=== PATIENT | female | born 1980 | race African-American/Black ===

== ENCOUNTER 2016-11-17 19:41 | Emergency (ER) | payer SELFPAY ==
[2016-11-17 20:02] VITALS: BP 152/80
--- NOTE | 2016-11-17 20:28 | UC ---
Lower Extremity/Ankle HPI - HPI Summary HPI Summary: While climbing some steps holding a stroller today, missed one step and came down hard on L foot, minorly twisting the foot. Hx of L ankle fx without surgery in past. - History of Current Complaint Chief Complaint: UCLowerExtremity Stated Complaint: FOOT INJURY Time Seen by Provider: 11/17/16 19:47 Hx Obtained From: Patient Hx Last Menstrual Period: 2011 ?: No Onset/Duration: Sudden Onset Severity Initially: Mild Severity Currently: Mild Aggravating Factor(s): Standing, Ambulation Alleviating Factor(s): Rest Able to Bear Weight: Yes - Allergies/Home Medications Allergies/Adverse Reactions: Allergies Allergy/AdvReac Type Severity Reaction Status Date / Time No Known Allergies Allergy Verified 11/17/16 20:03 PMH/Surg Hx/FS Hx/Imm Hx Endocrine History Of: Denies: Diabetes, Thyroid Disease Cardiovascular History Of: Denies: Cardiac Disorders, Hypertension Respiratory History Of: Denies: COPD, Asthma GI/ History Of: Reports: Gastroesophageal Reflux, Ulcer - gerd Psychological History Of: Reports: Depression, Bipolar Disorder - Surgical History Surgical History: Yes Surgery Procedure, Year, and Place: hysterectomy. - Family History Known Family History: Positive: Other - NONCONTRIBUTORY Family History: obesity - Social History Occupation: Employed Part-time Lives: With Family Alcohol Use: None Substance Use Type: None Smoking Status (MU): Light Every Day Tobacco Smoker Type: Cigarettes Amount Used/How Often: less than 1/2 PPD Have You Smoked in the Last Year: Yes Household Exposure Type: Cigarettes - Immunization History Most Recent Influenza Vaccination: 7994-1050 Most Recent Tetanus Shot: 2013 Review of Systems Constitutional: Negative Skin: Negative Eyes: Negative ENT: Negative Respiratory: Negative Cardiovascular: Negative Gastrointestinal: Negative Genitourinary: Negative Motor: Negative Neurovascular: Negative Musculoskeletal: Arthralgia Neurological: Negative Psychological: Negative All Other Systems Reviewed And Are Negative: Yes Physical Exam Triage Information Reviewed: Yes Appearance: Well-Appearing, No Pain Distress, Obese Vital Signs: Initial Vital Signs Temp 97.9 F 11/17/16 19:57 Pulse 87 11/17/16 19:57 Resp 18 11/17/16 19:57 BP 152/80 11/17/16 19:57 Pulse Ox 98 11/17/16 19:57 Vital Signs Reviewed: Yes Eye Exam: Normal Eyes: Positive: Conjunctiva Clear ENT Exam: Normal ENT: Positive: Normal ENT inspection, Hearing grossly normal, Pharynx normal, TMs normal Dental Exam: Other - edentulous Neck exam: Normal Respiratory Exam: Normal Respiratory: Positive: Chest non-tender, Lungs clear, Normal breath sounds, No respiratory distress, No accessory muscle use Cardiovascular Exam: Normal Cardiovascular: Positive: RRR, No Murmur Musculoskeletal Exam: Other - pain in L lateral foot Musculoskeletal: Positive: Strength Intact, ROM Intact Neurological Exam: Normal Neurological: Positive: Alert Psychological Exam: Normal Skin Exam: Normal Lower Extremity Course/Dx - Differential Dx/Diagnosis Provider Diagnoses: L foot sprain Discharge - Discharge Plan Condition: Stable Disposition: HOME Patient Education Materials: Foot Sprain (ED) Referrals: Yoni Grijalva DO [Primary Care Provider] - 2 Weeks
--- NOTE | 2016-11-17 20:45 | RAD ---
INDICATION: Left foot injury. TECHNIQUE: 3 views of the left foot were obtained. FINDINGS: There is hallux valgus deformity. The bones are otherwise in normal alignment. No fracture is seen. Joint spaces appear maintained. IMPRESSION: NO EVIDENCE FOR FRACTURE.
== END 2016-11-17 20:48 | disposition home or self-care (01) ==
LOC: UCEAST 19:41
DX: S93.602A Unspecified sprain of left foot, initial encounter (principal); K21.9 Gastro-esophageal reflux disease without esophagitis; F33.9 Major depressive disorder, recurrent, unspecified; F17.210 Nicotine dependence, cigarettes, uncomplicated; W10.9XXA Fall (on) (from) unspecified stairs and steps, initial encounter
CPT/HCPCS: 99211; G0463

== ENCOUNTER 2017-01-23 16:47 | Emergency (ER) | payer SELFPAY ==
[2017-01-23 17:25] VITALS: BP 145/83
--- NOTE | 2017-01-23 18:16 | UC ---
Throat Pain/Nasal Bernard HPI - HPI Summary HPI Summary: The patient comes in today for: 1. Fever, sore throat, otalgia: Onset: 24 hours ago. Palliative/provocative: Swallowing makes it worse. Quality: Sore Region: posterior pharynx. Severity: 7/10 Time: Constant. Associated symptoms: Others ill: she was around a sick mother and twins yesterday. Temperatures: 102 today. Rhinitis: None Cough: "a little bit" not productive. Nausea: present. * - History of Current Complaint Chief Complaint: UCGeneralIllness Stated Complaint: FEVER Time Seen by Provider: 01/23/17 18:08 Hx Obtained From: Patient Hx Last Menstrual Period: 2011 - Allergies/Home Medications Allergies/Adverse Reactions: Allergies Allergy/AdvReac Type Severity Reaction Status Date / Time No Known Allergies Allergy Verified 01/23/17 17:25 Home Medications: Home Medications Ibuprofen TAB* [Motrin TAB* 800 MG] 1,600 mg PO ONCE 01/23/17 [History Confirmed 01/23/17] PMH/Surg Hx/FS Hx/Imm Hx Previously Healthy: No - irritable bowel syndrome. GI/ History: Gastroesophageal Reflux Psychological History: Anxiety, Depression - Surgical History Surgical History: Yes Surgery Procedure, Year, and Place: hysterectomy. - Family History Known Family History: Positive: Hypertension, Diabetes, Other - NONCONTRIBUTORY Family History: obesity - Social History Occupation: Employed Full-time Alcohol Use: None Substance Use Type: None Smoking Status (MU): Light Every Day Tobacco Smoker Type: Cigarettes Amount Used/How Often: less than 1/2 PPD Have You Smoked in the Last Year: Yes Household Exposure Type: Cigarettes - Immunization History Most Recent Influenza Vaccination: [id number] Most Recent Tetanus Shot: 2013 Review of Systems Constitutional: Fever Skin: Negative Eyes: Negative ENT: Sore Throat Respiratory: Cough Cardiovascular: Negative Gastrointestinal: Negative Genitourinary: Negative Musculoskeletal: Arthralgia All Other Systems Reviewed And Are Negative: Yes Physical Exam Triage Information Reviewed: Yes Appearance: No Pain Distress, Ill-Appearing - She was a bit slow with her movement and there was a lack of expressive facial features., Obese Vital Signs: Initial Vital Signs Temp 101 F 01/23/17 17:20 Pulse 126 01/23/17 17:20 Resp 22 01/23/17 17:20 BP 145/83 01/23/17 17:20 Pulse Ox 100 01/23/17 17:20 Vital Signs Reviewed: Yes Eyes: Positive: Conjunctiva Clear. Negative: Discharge ENT: Positive: Hearing grossly normal. Negative: Pharyngeal erythema, Nasal congestion, Nasal drainage, TM bulging, TM dull, TM red, Tonsillar swelling, Tonsillar exudate Dental: Negative: Gross Decay/Caries @, Dental Fracture @ Neck: Positive: Supple, Nontender, No Lymphadenopathy. Negative: Nuchal Rigidity Respiratory: Positive: Lungs clear, No respiratory distress, No accessory muscle use. Negative: Rhonchi, Wheezing Cardiovascular: Positive: RRR, No Murmur Abdomen Description: Positive: Nontender, No Organomegaly, Soft. Negative: Distended, Guarding Musculoskeletal: Positive: Strength Intact, ROM Intact, No Edema Neurological: Positive: Alert, Muscle Tone Normal Psychological: Positive: Age Appropriate Behavior, Consolable Skin: Negative: rashes, breakdown Diagnostics - Laboratory Diagnostic Studies Completed/Ordered: strep test: (+) Throat Pain/Nasal Course/Dx - Differential Dx/Diagnosis Differential Diagnosis/HQI/PQRI: Laryngitis, Tonsillitis Provider Diagnoses: Strep pharyngitis Discharge - Discharge Plan Condition: Stable Disposition: HOME Patient Education Materials: Strep Throat (ED) Referrals: Yoni Grijalva DO [Primary Care Provider] - 1 Week (Please see your primary care provider in about one to two weeks to see how well you are doing. If you get worse, please be seen sooner.)
[2017-01-23] MEDS ORDERED: Ondansetron ODT TAB* 4 MG PO ONE (18:19)
== END 2017-01-23 18:34 | disposition home or self-care (01) ==
LOC: UCCORT 16:47
DX: J02.0 Streptococcal pharyngitis (principal); F17.210 Nicotine dependence, cigarettes, uncomplicated
CPT/HCPCS: 87651; 99212; A9270-GY; G0463

== ENCOUNTER 2017-08-22 17:36 | Emergency (ER) | payer OTHER ==
[2017-08-22 18:04] VITALS: BP 132/68
--- NOTE | 2017-08-22 18:41 | UC ---
Throat Pain/Nasal Bernard HPI - HPI Summary HPI Summary: Per haircutter: "fever since last night, body aches/sore throat," Feels like it' s strep. has had strep in past and feels similar. + nausea. + glands swollen. no cough. - History of Current Complaint Chief Complaint: UCGeneralIllness Stated Complaint: SORE THROAT Time Seen by Provider: 08/22/17 18:06 Hx Last Menstrual Period: 2011 - Allergies/Home Medications Allergies/Adverse Reactions: Allergies Allergy/AdvReac Type Severity Reaction Status Date / Time No Known Allergies Allergy Verified 08/22/17 18:04 PMH/Surg Hx/FS Hx/Imm Hx Previously Healthy: Yes - Surgical History Surgical History: Yes Surgery Procedure, Year, and Place: hysterectomy. - Family History Known Family History: Positive: Hypertension, Diabetes, Other - NONCONTRIBUTORY Family History: obesity - Social History Alcohol Use: None Substance Use Type: None Smoking Status (MU): Former Smoker Type: Cigarettes Amount Used/How Often: less than 1/2 PPD Have You Smoked in the Last Year: Yes Household Exposure Type: Cigarettes - Immunization History Most Recent Influenza Vaccination: [id number] Most Recent Tetanus Shot: 2013 Review of Systems Constitutional: Fever, Chills, Fatigue Skin: Negative Eyes: Negative ENT: Sore Throat Respiratory: Negative Cardiovascular: Negative Gastrointestinal: Nausea Genitourinary: Negative Motor: Negative Neurovascular: Negative Musculoskeletal: Negative Neurological: Negative Psychological: Negative Is Patient Immunocompromised?: No All Other Systems Reviewed And Are Negative: Yes Physical Exam Triage Information Reviewed: Yes Appearance: Well-Nourished, Ill-Appearing Vital Signs: Initial Vital Signs Temp 100.0 F 08/22/17 18:00 Pulse 136 08/22/17 18:00 Resp 20 08/22/17 18:00 BP 132/68 08/22/17 18:00 Pulse Ox 99 08/22/17 18:00 Vital Signs Reviewed: Yes Eye Exam: Normal ENT: Positive: Pharyngeal erythema. Negative: Tonsillar swelling, Tonsillar exudate - no abscess., Sinus tenderness Dental Exam: Normal Neck exam: Normal Neck: Positive: Supple, Enlarged Nodes @ - b/l ant cx, tender. Respiratory Exam: Normal Respiratory: Positive: Lungs clear, Normal breath sounds, No respiratory distress, No accessory muscle use Cardiovascular Exam: Normal Cardiovascular: Positive: RRR, No Murmur, Pulses Normal Abdomen Description: Positive: Nontender, Soft Musculoskeletal Exam: Normal Neurological Exam: Normal Psychological Exam: Normal Skin Exam: Normal Throat Pain/Nasal Course/Dx - Course Course Of Treatment: influenza neg. rapid strep positive - Differential Dx/Diagnosis Differential Diagnosis/HQI/PQRI: Mononucleosis, Peritonsillar Abscess, Pharyngitis, Sinusitis, Tonsillitis, URI Provider Diagnoses: strep pharyngitis Discharge - Discharge Plan Condition: Stable Disposition: HOME Prescriptions: Amoxicillin PO (*) [Amoxicillin 875 MG (*)] 875 mg PO BID #19 tab Patient Education Materials: Strep Throat (ED) Referrals: Yoni Grijalva DO [Primary Care Provider] - 5 Days Additional Instructions: -Make sure to take a probiotic daily while on antibiotics to help prevent a potential complication of antibiotic use called c diff. Some well known brands that can be found OTC are florastor, align and [employer] [facility]. Make sure to complete the entire prescription unless advised otherwise by your health care provider. -You were given 500mgs of amoxicillin here. Make sure you warp picker your prescription first thing in the morning. Complete the entire prescription.
[2017-08-22] MEDS ORDERED: Amoxicillin PO (*) 500 MG CAP PO ONE (18:45)
[2017-08-22] MEDS ORDERED: Ondansetron ODT TAB* 4 MG PO ONE (18:48)
== END 2017-08-22 18:55 | disposition home or self-care (01) ==
LOC: UCCORT 17:36
DX: J02.0 Streptococcal pharyngitis (principal); R11.0 Nausea; Z87.891 Personal history of nicotine dependence
CPT/HCPCS: 87502; 87651; 99212; A9270-GY; G0463

== ENCOUNTER 2017-12-12 09:51 | Emergency (ER) | payer SELFPAY ==
[2017-12-12 10:18] VITALS: BP 143/89
--- NOTE | 2017-12-12 11:21 | UC ---
Lower Extremity/Ankle HPI - HPI Summary HPI Summary: PATIENT FELL ABOUT 2 MONTHS AGO INJURY LEFT ANKLE. SEEN AT [facility]--JUST STOP USING THE CAM BOOT A WEEK OR 2 AGO... THE ANKLE NEVER REALLY GOT BETTER AND YESTERDAY SHE TRIPPED OVER A BABY GAIT INJURING HER LEFT LATERAL ANKLE AGAIN - History of Current Complaint Chief Complaint: UCLowerExtremity Stated Complaint: S/P FALL-LFT ANKLE INJURY Time Seen by Provider: 12/12/17 11:19 Hx Obtained From: Patient Hx Last Menstrual Period: 2011 ?: No Onset/Duration: Sudden Onset, Lasting Weeks - 8, Worse Since - tripping on baby gait yesterday Severity Initially: Moderate Severity Currently: Moderate Aggravating Factor(s): Standing, Ambulation Alleviating Factor(s): Rest, Elevation Able to Bear Weight: Yes - with pain - Allergies/Home Medications Allergies/Adverse Reactions: Allergies Allergy/AdvReac Type Severity Reaction Status Date / Time No Known Allergies Allergy Verified 12/12/17 10:19 Home Medications: Home Medications Acetaminophen [Tylenol] 325 mg PO DAILY PRN 12/12/17 [History Confirmed 12/12/17 ] Ibuprofen TAB* [Motrin TAB* 800 MG] 800 mg PO Q6H PRN 12/12/17 [History Confirmed 12/12/17] QUEtiapine TAB* [Seroquel TAB*] 25 mg PO DAILY 12/12/17 [History Confirmed 12/12] PMH/Surg Hx/FS Hx/Imm Hx Previously Healthy: Yes GI/ History: Gastroesophageal Reflux Psychological History: Anxiety, Depression - Surgical History Surgical History: Yes Surgery Procedure, Year, and Place: hysterectomy. - Family History Known Family History: Positive: Hypertension, Diabetes, Other - NONCONTRIBUTORY Family History: obesity - Social History Occupation: Unemployed Lives: With Family Alcohol Use: None Substance Use Type: None Smoking Status (MU): Former Smoker Type: Cigarettes Amount Used/How Often: 1/2 ppd Length of Time of Smoking/Using Tobacco: 16 yrs Have You Smoked in the Last Year: Yes When Did the Patient Quit Smoking/Using Tobacco: 2017 Household Exposure Type: Cigarettes - Immunization History Most Recent Influenza Vaccination: [id number] Most Recent Tetanus Shot: 2013 Review of Systems Constitutional: Negative Skin: Negative Eyes: Negative ENT: Negative Respiratory: Negative Cardiovascular: Negative Gastrointestinal: Negative Genitourinary: Negative Motor: Negative Neurovascular: Negative Musculoskeletal: Arthralgia - lateral left ankle Neurological: Negative Psychological: Negative Is Patient Immunocompromised?: No All Other Systems Reviewed And Are Negative: Yes Physical Exam Triage Information Reviewed: Yes Appearance: Well-Appearing, Pain Distress, Obese Vital Signs: Initial Vital Signs Temp 97.9 F 12/12/17 10:04 Pulse 80 12/12/17 10:04 Resp 16 12/12/17 10:04 BP 143/89 12/12/17 10:04 Pulse Ox 100 12/12/17 10:04 Vital Signs Reviewed: Yes Eye Exam: Normal Eyes: Positive: Conjunctiva Clear ENT Exam: Normal ENT: Positive: Normal ENT inspection, Hearing grossly normal. Negative: Trismus , Muffled voice, Hoarse voice Dental Exam: Normal Neck exam: Normal Neck: Positive: Supple, Nontender Respiratory Exam: Normal Respiratory: Positive: Chest non-tender, No respiratory distress, No accessory muscle use Cardiovascular Exam: Normal Cardiovascular: Positive: RRR, No Murmur, Pulses Normal, Brisk Capillary Refill Abdominal Exam: Normal Musculoskeletal Exam: Other Musculoskeletal: Positive: Strength Intact, ROM Limited @ - left lateral ankle, Edema @ - left lateral ankle Neurological Exam: Normal Neurological: Positive: Alert, Muscle Tone Normal Psychological Exam: Normal Skin Exam: Normal Diagnostics - Radiology No standard instances Xray Interpretation: Positive (See Comments) - soft tissue swelling Radiology Interpretation Completed By: ED Physician, Radiologist Re-Evaluation - Re-Evaluation First Eval Change: Improved - adam / cam Lower Extremity Course/Dx - Course Course Of Treatment: Rest ice and elevation, Adam wrap Cam Boot, ibuprofen Tylenol for pain follow with orthopedic doctor this week - Differential Dx/Diagnosis Provider Diagnoses: left ankle sprain Discharge - Sign-Out/Discharge Documenting (check all that apply): Discharge/Admit/Transfer - Discharge Plan Condition: Stable Disposition: HOME Prescriptions: Ibuprofen TAB* [Motrin TAB* 800 MG] 800 mg PO Q6H PRN #30 tab PRN Reason: pain Patient Education Materials: Ibuprofen (By mouth), Ankle Sprain (ED), Hypertension (ED), R.I.C.E. Treatment (ED) Referrals: Chevy Armstrong MD [Medical Doctor] - 5 Days Yoni Grijalva DO [Primary Care Provider] - 1 Week - Billing Disposition and Condition Condition: STABLE Disposition: HOME
--- NOTE | 2017-12-12 11:54 | RAD ---
INDICATION: Left ankle injury. TECHNIQUE: 3 views of the left ankle were obtained. FINDINGS: There is diffuse soft tissue swelling. The bones are in normal alignment. No fracture is seen. Joint spaces appear maintained. IMPRESSION: SOFT TISSUE SWELLING, NO FRACTURE IS SEEN.
--- NOTE | 2017-12-12 11:57 | RAD ---
INDICATION: Left foot injury. TECHNIQUE: 3 views of the left foot were obtained. FINDINGS: There is lateral soft tissue swelling. No fracture is seen. Joint spaces appear maintained. IMPRESSION: SOFT TISSUE SWELLING, NO FRACTURE IS SEEN.
== END 2017-12-12 12:32 | disposition home or self-care (01) ==
LOC: UCCORT 09:51
DX: S93.402A Sprain of unspecified ligament of left ankle, initial encounter (principal); W18.09XA Striking against other object with subsequent fall, initial encounter; Y93.01 Activity, walking, marching and hiking; Y92.009 Unspecified place in unspecified non-institutional (private) residence as the place of occurrence of the external cause; Z87.891 Personal history of nicotine dependence
CPT/HCPCS: 99213; G0463

== ENCOUNTER 2017-12-19 20:33 | Emergency (ER) | payer MEDICAID ==
[2017-12-19 21:14] VITALS: BP 114/79
[2017-12-19] MEDS ORDERED: Amoxicillin PO (*) 500 MG CAP PO ONE ×3 (21:25→21:35)
[2017-12-19] MEDS ORDERED: Acetaminophen TAB* 325 MG PO ONE (21:28)
--- NOTE | 2017-12-19 21:35 | UC ---
Throat Pain/Nasal Bernard HPI - HPI Summary HPI Summary: c/o fever, chills, sore throat and malaise today. History of past infections with strep throat about twice a year for past few years. - History of Current Complaint Chief Complaint: UCGeneralIllness Stated Complaint: FEVER,CHILLS,SORE THROAT Time Seen by Provider: 12/19/17 21:16 Hx Obtained From: Patient Hx Last Menstrual Period: 2011 ?: No Onset/Duration: Sudden Onset, Lasting Days Severity: Severe Pain Intensity: 7 Cough: None Associated Signs & Symptoms: Positive: Dysphagia, Fever - Epiglottits Risk Factors Epiglottis Risk Factors: Negative - Allergies/Home Medications Allergies/Adverse Reactions: Allergies Allergy/AdvReac Type Severity Reaction Status Date / Time No Known Allergies Allergy Verified 12/12/17 10:19 PMH/Surg Hx/FS Hx/Imm Hx Psychological History: Bipolar Disorder - Surgical History Surgical History: Yes Surgery Procedure, Year, and Place: hysterectomy. - Family History Known Family History: Positive: Hypertension, Diabetes, Other - NONCONTRIBUTORY Family History: obesity - Social History Alcohol Use: None Substance Use Type: None Smoking Status (MU): Former Smoker Type: Cigarettes Amount Used/How Often: 1/2 ppd Length of Time of Smoking/Using Tobacco: 16 yrs Have You Smoked in the Last Year: Yes When Did the Patient Quit Smoking/Using Tobacco: 2017 Household Exposure Type: Cigarettes - Immunization History Most Recent Influenza Vaccination: 0892-1962 Most Recent Tetanus Shot: 2013 Review of Systems Constitutional: Fever ENT: Sore Throat All Other Systems Reviewed And Are Negative: Yes Physical Exam Triage Information Reviewed: Yes Appearance: Well-Appearing, No Pain Distress, Well-Nourished, Ill-Appearing Vital Signs: Initial Vital Signs Temp 101.0 F 12/19/17 21:06 Pulse 139 12/19/17 21:06 Resp 16 12/19/17 21:06 BP 114/79 12/19/17 21:06 Pulse Ox 95 12/19/17 21:06 Vital Signs Reviewed: Yes Eyes: Positive: Conjunctiva Clear ENT: Positive: Hearing grossly normal, Pharyngeal erythema, TMs normal, Uvula midline Neck: Positive: Supple, Nontender Respiratory: Positive: Chest non-tender, Lungs clear, Normal breath sounds, No respiratory distress Cardiovascular: Positive: RRR, No Murmur, Pulses Normal, Brisk Capillary Refill Bowel Sounds: Positive: Present Throat Pain/Nasal Course/Dx - Course Course Of Treatment: strep test positive, start amoxil as prescribed, first doses dispensed at . Patietn to continue to complete antibiotic course, f/u with PCP in 2 weeks. Continue oral hydration and tylenol when needed - Differential Dx/Diagnosis Provider Diagnoses: streptococcal pharyngitis Discharge - Sign-Out/Discharge Documenting (check all that apply): Discharge/Admit/Transfer - Discharge Plan Condition: Stable Disposition: HOME Prescriptions: Amoxicillin PO (*) [Amoxicillin 875 MG (*)] 875 mg PO BID 10 Days #20 tab Patient Education Materials: Amoxicillin (By mouth), Pharyngitis (ED) Referrals: Yoni Grijalva DO [Primary Care Provider] - - Billing Disposition and Condition Condition: STABLE Disposition: HOME
[2017-12-19] MEDS ORDERED: Ondansetron ODT TAB* 4 MG PO ONE (21:43)
== END 2017-12-19 21:57 | disposition home or self-care (01) ==
LOC: UCCORT 20:33
DX: J02.0 Streptococcal pharyngitis (principal); Z87.891 Personal history of nicotine dependence
CPT/HCPCS: 87651; 99213; A9270-GY; G0463

== ENCOUNTER 2018-02-19 15:19 | Emergency (ER) | payer MEDICAID, OTHER ==
[2018-02-19 17:06] VITALS: BP 135/82
--- NOTE | 2018-02-19 17:40 | UC ---
Complaint Female HPI - History Of Current Complaint Chief Complaint: UCGU Stated Complaint: URINARY Time Seen by Provider: 02/19/18 17:08 Hx Obtained From: Patient - complaining of lower abdominal cramping and some low back pain , without fever or chills Hx Last Menstrual Period: 2011 ?: No Onset/Duration: Gradual Onset Severity Initially: Moderate Severity Currently: Moderate Pain Intensity: 9 Character: Sharp Aggravating Factor(s): Movement Associated Signs And Symptoms: Positive: Negative - Risk Factors Ectopic Risk Factor: Negative Ovarian Torsion Risk Factor: Negative - Allergies/Home Medications Allergies/Adverse Reactions: Allergies Allergy/AdvReac Type Severity Reaction Status Date / Time No Known Allergies Allergy Verified 02/19/18 16:57 PMH/Surg Hx/FS Hx/Imm Hx Previously Healthy: Yes - Surgical History Surgical History: Yes Surgery Procedure, Year, and Place: hysterectomy. - Family History Known Family History: Positive: Hypertension, Diabetes, Other - NONCONTRIBUTORY Family History: obesity - Social History Alcohol Use: None Substance Use Type: None Smoking Status (MU): Former Smoker Type: Cigarettes Amount Used/How Often: 1/2 ppd Length of Time of Smoking/Using Tobacco: 16 yrs Have You Smoked in the Last Year: Yes When Did the Patient Quit Smoking/Using Tobacco: 2017 Household Exposure Type: Cigarettes - Immunization History Most Recent Influenza Vaccination: 8922-0954 Most Recent Tetanus Shot: 2013 Review of Systems Constitutional: Negative Skin: Negative Eyes: Negative ENT: Negative Respiratory: Negative Cardiovascular: Negative Gastrointestinal: Negative Genitourinary: Dysuria Motor: Negative Neurovascular: Negative Musculoskeletal: Negative Neurological: Negative Psychological: Negative All Other Systems Reviewed And Are Negative: Yes Physical Exam - Summary Physical Exam Summary: refused exam Triage Information Reviewed: Yes Appearance: Well-Appearing, No Pain Distress Vital Signs: Initial Vital Signs Temp 36.6 C 02/19/18 16:59 Pulse 99 02/19/18 16:59 Resp 18 02/19/18 16:59 BP 135/82 02/19/18 16:59 Pulse Ox 100 02/19/18 16:59 Vital Signs Reviewed: Yes Complaint Female Dx - Course Course Of Treatment: dysuria, without signs of infection - Differential Dx/Diagnosis Provider Diagnoses: lower abdominal pain, low back pain Discharge - Sign-Out/Discharge Documenting (check all that apply): Patient Departure - Discharge Plan Condition: Good Disposition: HOME Patient Education Materials: Dysuria (ED) Referrals: Yoni Grijalva DO [Primary Care Provider] - - Billing Disposition and Condition Condition: GOOD Disposition: Home
== END 2018-02-19 18:00 | disposition home or self-care (01) ==
LOC: UCCORT 15:19
DX: M54.5 Low back pain (principal); R10.30 Lower abdominal pain, unspecified; Z87.891 Personal history of nicotine dependence; R30.0 Dysuria
CPT/HCPCS: 81003; 99212; G0463

== ENCOUNTER 2018-06-01 08:52 | Emergency (ER) | payer OTHER ==
[2018-06-01 09:06] VITALS: BP 143/74
--- NOTE | 2018-06-01 09:50 | UC ---
Throat Pain/Nasal Bernard HPI - HPI Summary HPI Summary: Onset yesterday of sore throat, pain with swallowing and mild cough yesterday. Patient also complains of some nausea and achiness. Has a h/o recurrent strep and is scheduled for tonsillectomy next month. - History of Current Complaint Chief Complaint: UCRespiratory Stated Complaint: SORE THROAT Time Seen by Provider: 06/01/18 09:30 Hx Obtained From: Patient Hx Last Menstrual Period: 2011 Onset/Duration: Gradual Onset, Lasting Days, Still Present Severity: Moderate Pain Intensity: 7 Pain Scale Used: 0-10 Numeric Cough: Nonproductive Associated Signs & Symptoms: Negative: Fever - Allergies/Home Medications Allergies/Adverse Reactions: Allergies Allergy/AdvReac Type Severity Reaction Status Date / Time No Known Allergies Allergy Verified 06/01/18 09:07 PMH/Surg Hx/FS Hx/Imm Hx GI/ History: Gastroesophageal Reflux Psychological History: Anxiety, Depression, Bipolar Disorder - Surgical History Surgical History: Yes Surgery Procedure, Year, and Place: hysterectomy. - Family History Known Family History: Positive: Hypertension, Diabetes, Other - NONCONTRIBUTORY Family History: obesity - Social History Alcohol Use: None Substance Use Type: None Smoking Status (MU): Former Smoker Type: Cigarettes Amount Used/How Often: 1/2 ppd Length of Time of Smoking/Using Tobacco: 16 yrs Have You Smoked in the Last Year: Yes When Did the Patient Quit Smoking/Using Tobacco: 2017 Household Exposure Type: Cigarettes - Immunization History Most Recent Influenza Vaccination: 9306-4599 Most Recent Tetanus Shot: 2014 Review of Systems Constitutional: Fatigue ENT: Sore Throat Respiratory: Cough Cardiovascular: Negative Gastrointestinal: Negative Genitourinary: Negative All Other Systems Reviewed And Are Negative: Yes Physical Exam Triage Information Reviewed: Yes Appearance: No Pain Distress, Well-Nourished, Ill-Appearing - MILD Vital Signs: Initial Vital Signs Temp 97.7 F 06/01/18 09:02 Pulse 95 06/01/18 09:02 Resp 16 06/01/18 09:02 BP 143/74 06/01/18 09:02 Pulse Ox 98 06/01/18 09:02 Laboratory Tests 06/01/18 09:37 Group A Strep Rapid Negative Eyes: Positive: Conjunctiva Clear ENT: Positive: Hearing grossly normal, Pharynx normal, TMs normal, Tonsillar swelling. Negative: Tonsillar exudate Neck: Positive: Supple, Nontender, No Lymphadenopathy Respiratory Exam: Normal Cardiovascular Exam: Normal Abdomen Description: Positive: Soft Musculoskeletal: Positive: No Edema Neurological: Positive: Alert Psychological: Positive: Age Appropriate Behavior Skin: Negative: rashes Throat Pain/Nasal Course/Dx - Differential Dx/Diagnosis Provider Diagnoses: ACUTE PHARYNGITIS Discharge - Sign-Out/Discharge Documenting (check all that apply): Patient Departure All imaging exams completed and their final reports reviewed: No Studies - Discharge Plan Condition: Stable Disposition: HOME Prescriptions: Ondansetron ODT TAB* [Zofran Odt TAB*] 4 mg PO Q6H PRN #20 tab.odt PRN Reason: Nausea/Vomiting Patient Education Materials: Pharyngitis (ED) Forms: *Work Release Referrals: Yoni Grijalva DO [Primary Care Provider] - If Needed Additional Instructions: STREP TEST NEGATIVE. YOUR SYMPTOMS ARE LIKELY VIRALLY MEDIATED AND SHOULD RESOLVE ON THEIR OWN WITH TIME. NO INDICATION FOR ANTIBIOTICS AT PRESENT. REST, HYDRATE, OTC MEDS NEEDED. SEEK FOLLOW-UP IF YOU ARE NOT IMPROVING OVER THE NEXT 1-2 WEEKS. - Billing Disposition and Condition Condition: STABLE Disposition: Home
== END 2018-06-01 10:46 | disposition home or self-care (01) ==
LOC: UCEAST 08:52
DX: J02.9 Acute pharyngitis, unspecified (principal); R11.0 Nausea; Z87.891 Personal history of nicotine dependence
CPT/HCPCS: 87651; 99212; G0463

== ENCOUNTER 2018-11-20 12:44 | Emergency (ER) | payer OTHER ==
--- NOTE | 2018-11-20 13:03 | UC ---
Throat Pain/Nasal Bernard HPI - HPI Summary HPI Summary: Ill for 2 days with sore throat, feels like she has a fever, productive cough but doesn't look at the color of the sputum. No hx of asthma but thinks she has been wheezing. - History of Current Complaint Stated Complaint: ST,COUGH Time Seen by Provider: 11/20/18 12:53 Hx Obtained From: Patient Hx Last Menstrual Period: 2011 ?: No Onset/Duration: Gradual Onset Severity: Mild Cough: Productive Associated Signs & Symptoms: Positive: Wheezing, Hoarseness, Nasal Discharge - Epiglottits Risk Factors Epiglottis Risk Factors: Negative - Allergies/Home Medications Allergies/Adverse Reactions: Allergies Allergy/AdvReac Type Severity Reaction Status Date / Time No Known Allergies Allergy Verified 06/01/18 09:07 Home Medications: Home Medications ALPRAZolam TAB* [Xanax TAB*] 0.25 mg PO Q6H PRN 11/20/18 [History Confirmed ] Bupropion XL* [Wellbutrin XL *] 450 mg PO DAILY 11/20/18 [History Confirmed ] Cholecalciferol TAB* [Vitamin D TAB*] 1,000 unit PO DAILY 11/20/18 [History Confirmed 11/20/18] Pantoprazole TAB * [Protonix TAB*] 40 mg PO DAILY 11/20/18 [History Confirmed ] Vitamin TAB* 1 tab PO DAILY 11/20/18 [History Confirmed 11/20/18] PMH/Surg Hx/FS Hx/Imm Hx Previously Healthy: Yes - Surgical History Surgical History: Yes Surgery Procedure, Year, and Place: hysterectomy. - Family History Known Family History: Positive: Hypertension, Diabetes, Other - NONCONTRIBUTORY Family History: obesity - Social History Occupation: Employed Full-time Alcohol Use: None Substance Use Type: None Smoking Status (MU): Former Smoker Type: Cigarettes Amount Used/How Often: 1/2 ppd Length of Time of Smoking/Using Tobacco: 16 yrs Have You Smoked in the Last Year: Yes When Did the Patient Quit Smoking/Using Tobacco: 2017 Household Exposure Type: Cigarettes - Immunization History Most Recent Influenza Vaccination: [id number] Most Recent Tetanus Shot: 2013 Review of Systems All Other Systems Reviewed And Are Negative: Yes Constitutional: Positive: Fever, Chills ENT: Positive: Sore Throat, Nasal Discharge Respiratory: Positive: Cough - Productive at times, non-smoker for the past 2 years. Is Patient Immunocompromised?: No Physical Exam Triage Information Reviewed: Yes Appearance: Well-Appearing, No Pain Distress, Well-Nourished Vital Signs Reviewed: Yes Eye Exam: Normal ENT: Positive: Pharyngeal erythema, Nasal drainage - Cear nasal coryza, TMs normal, Hoarse voice - Mildly hoarse voice Neck: Positive: Supple, Nontender, No Lymphadenopathy Respiratory: Positive: Lungs clear, Normal breath sounds, No respiratory distress, No accessory muscle use Cardiovascular Exam: Normal Cardiovascular: Positive: RRR, No Murmur, Pulses Normal, Brisk Capillary Refill Musculoskeletal Exam: Normal Neurological Exam: Normal Psychological Exam: Normal Skin Exam: Normal Throat Pain/Nasal Course/Dx - Course Course Of Treatment: Comfortable here Rapid strep : negative CXR : Negative, Pt given a duoneb treatment here and states she feels like she has more air movement. Lungs remain CTA - Differential Dx/Diagnosis Differential Diagnosis/HQI/PQRI: URI Provider Diagnosis: URI (upper respiratory infection) Discharge - Sign-Out/Discharge Documenting (check all that apply): Patient Departure All imaging exams completed and their final reports reviewed: Yes - Discharge Plan Condition: Fair Disposition: HOME Prescriptions: Albuterol HFA INHALER* [Ventolin HFA Inhaler*] 2 puff INH Q4H PRN 5 Days #1 mdi PRN Reason: Wheezing Patient Education Materials: Upper Respiratory Infection (DC) Forms: *Work Release Referrals: Yoni Grijalva DO [Primary Care Provider] - Additional Instructions: Increase fluids, Use your albuterol inhaler 2 puffs every 4 hours while awake as needed for tight cough or wheezing. See your primary care provider in 3-4 days if no improvement. - Billing Disposition and Condition Condition: FAIR Disposition: Home - Attestation Statements Provider Attestation: Per institutional requirements, I have reviewed the chart, however, I was not consulted specifically or made aware of this patient by the midlevel provider. I did not personally evaluate, interact with , or disposition this patient.
[2018-11-20 13:06] VITALS: BP 127/90
[2018-11-20] MEDS ORDERED: Albuterol/Ipratropium NEB.SOL* Albuterol 2.5 MG/Ipratropium 0.5 MG 3 ML INH ONE (13:09)
== END 2018-11-20 13:52 | disposition home or self-care (01) ==
LOC: UCCORT 12:44
DX: J06.9 Acute upper respiratory infection, unspecified (principal); R05 Cough; Z87.891 Personal history of nicotine dependence
CPT/HCPCS: 71046; 87651; 99212; A9270-GY; G0463

== ENCOUNTER 2019-02-24 17:42 | Emergency (ER) | payer OTHER ==
[2019-02-24 18:30] VITALS: BP 137/88
--- NOTE | 2019-02-24 18:59 | UC ---
Headache HPI - HPI Summary HPI Summary: Pt presents with c/o sudden onset of ROD that began yesterday. Pt states that she has been taking tylenol and aleve with no improvement in pain. Pt deneis hx of migraines, injury or change in vision, one sided weakness, is occasionally nauseous, denies vomiting, denies change in vision, difficulty swallowing. Is positive for photophobia, reports having difficulty sleeping last night and states this is the "worst headache" she has ever had. - History Of Current Complaint Chief Complaint: UCGeneralIllness Stated Complaint: HEADACHE,POSSIBLE SINUS INFECTION Time Seen by Provider: 02/24/19 18:35 Hx Obtained From: Patient Hx Last Menstrual Period: 2011 ?: No Onset/Duration: Sudden Onset, Lasting Days, Still Present Onset Of Symptoms: Sudden Initially Headache Was: "Worst Headache Ever" Currently Pain Is: Severe Pain Intensity: 7 Timing: Constant Character: Sharp, Dull, Throbbing, Pressure Location of Headache: Diffuse Aggravating Factor(s): Bright Lights Allevating Factor(s): Nothing Associated Signs And Symptoms: Positive: Nausea, Sinus Pressure - Risk Factors SAH Risk Factors: -[place] Meningitis Risk Factors: Negative SDH Risk Factors: Negative Temporal Arteritis Risk Factors: Female - Allergies/Home Medications Allergies/Adverse Reactions: Allergies Allergy/AdvReac Type Severity Reaction Status Date / Time No Known Allergies Allergy Verified 02/24/19 18:30 Home Medications: Home Medications Naproxen Sodium [Aleve] 220 mg PO DAILY 02/24/19 [History Confirmed 02/24/19] PMH/Surg Hx/FS Hx/Imm Hx Previously Healthy: Yes - Surgical History Surgical History: Yes Surgery Procedure, Year, and Place: hysterectomy. . Tonsillectomy - Family History Known Family History: Positive: Hypertension, Diabetes, Other - NONCONTRIBUTORY Family History: obesity - Social History Occupation: Employed Full-time Lives: With Family Alcohol Use: None Substance Use Type: None Smoking Status (MU): Former Smoker Type: Cigarettes Amount Used/How Often: 1/2 ppd Length of Time of Smoking/Using Tobacco: 16 yrs Have You Smoked in the Last Year: Yes When Did the Patient Quit Smoking/Using Tobacco: 2017 Household Exposure Type: Cigarettes - Immunization History Most Recent Influenza Vaccination: [id number] Most Recent Tetanus Shot: 2013 Review of Systems All Other Systems Reviewed And Are Negative: Yes Constitutional: Positive: Negative Skin: Positive: Negative Eyes: Positive: Photophobia ENT: Positive: Negative Respiratory: Positive: Negative Cardiovascular: Positive: Negative Gastrointestinal: Positive: Negative Genitourinary: Positive: Negative Motor: Positive: Negative Neurovascular: Positive: Negative Musculoskeletal: Positive: Negative Neurological: Positive: Headache Psychological: Positive: Other - inpain Is Patient Immunocompromised?: Yes Physical Exam Triage Information Reviewed: Yes Appearance: Pain Distress Vital Signs: Initial Vital Signs Temp 97.5 F 02/24/19 18:25 Pulse 91 02/24/19 18:25 Resp 16 02/24/19 18:25 BP 137/88 02/24/19 18:25 Pulse Ox 98 02/24/19 18:25 Vital Signs Reviewed: Yes Eye Exam: Normal ENT Exam: Normal Dental Exam: Normal Neck exam: Normal Neck: Positive: Supple, Nontender Respiratory Exam: Normal Cardiovascular Exam: Normal Musculoskeletal Exam: Normal Neurological Exam: Normal Psychological Exam: Normal Skin Exam: Normal Headache Course/Dx - Course Course Of Treatment: I disucssed with the pt the need to seek further evaluation and testing as she reported that this is "worst headache" she has ever had. I recommended that she seek care at the closest emergency room. Pt verbalized understanding and agreed to plan of care. - Differential Dx/Diagnosis Differential Diagnosis/HQI/PQRI: Migraine, Sinus Headache, Tension Headache Provider Diagnosis: Headache Discharge - Sign-Out/Discharge Documenting (check all that apply): Patient Departure All imaging exams completed and their final reports reviewed: No Studies - Discharge Plan Condition: Stable Disposition: HOME-RECOMMEND TO ED Patient Education Materials: Acute Headache (ED) Referrals: Yoni Grijalva DO [Primary Care Provider] - Additional Instructions: Please go directly to the closest Emergency Room immediately. - Billing Disposition and Condition Condition: STABLE Disposition: Home-Recommend to ED
== END 2019-02-24 19:05 | disposition home health service (06) ==
LOC: UCCORT 17:42
DX: R51 Headache (principal); Z87.891 Personal history of nicotine dependence
CPT/HCPCS: 99212; G0463

== ENCOUNTER 2019-05-10 16:10 | Emergency (ER) | payer OTHER ==
[2019-05-10 16:43] VITALS: BP 134/85
--- NOTE | 2019-05-10 16:49 | UC ---
Throat Pain/Nasal Bernard HPI - HPI Summary HPI Summary: 38 yo female presents with cold symptoms. She tells me that last night she developed a sore throat, sinus congestion, runny nose, dry cough, and wheezing. She has a history of asthma and used her inhaler with good relief. She also took ibuprofen with mild relief of her discomfort. She has felt hot/cold, but has not taken her temperature. She works at [employer] and is around food all day. Denies SOB, chest pain, abdominal pain, n/v. - History of Current Complaint Chief Complaint: UCRespiratory Stated Complaint: COLD SYMPTOMS Time Seen by Provider: 05/10/19 16:49 Hx Obtained From: Patient Hx Last Menstrual Period: hyster Onset/Duration: Sudden Onset Severity: Mild Pain Intensity: 4 Pain Scale Used: 0-10 Numeric - Allergies/Home Medications Allergies/Adverse Reactions: Allergies Allergy/AdvReac Type Severity Reaction Status Date / Time No Known Allergies Allergy Verified 02/24/19 18:30 Home Medications: Home Medications Ibuprofen 600 mg PO Q6HR PRN 05/10/19 [History Confirmed 05/10/19] PMH/Surg Hx/FS Hx/Imm Hx Respiratory History: Asthma GI/ History: Gastroesophageal Reflux Psychological History: Anxiety, Depression - Surgical History Surgical History: Yes Surgery Procedure, Year, and Place: hysterectomy. . Tonsillectomy - Family History Known Family History: Positive: Hypertension, Diabetes, Other - NONCONTRIBUTORY Family History: obesity - Social History Occupation: Employed Full-time Lives: With Family Alcohol Use: None Substance Use Type: None Smoking Status (MU): Former Smoker Type: Cigarettes Amount Used/How Often: 1/2 ppd Length of Time of Smoking/Using Tobacco: 16 yrs Have You Smoked in the Last Year: Yes When Did the Patient Quit Smoking/Using Tobacco: 2017 Household Exposure Type: Cigarettes - Immunization History Most Recent Influenza Vaccination: [id number] Most Recent Tetanus Shot: 2013 Review of Systems All Other Systems Reviewed And Are Negative: No Constitutional: Positive: Fatigue Skin: Positive: Negative Eyes: Positive: Negative ENT: Positive: Sore Throat, Nasal Discharge, Sinus Congestion, Sinus Pain/ Tenderness Respiratory: Positive: Cough Cardiovascular: Positive: Negative Gastrointestinal: Positive: Negative Neurovascular: Positive: Negative Neurological: Positive: Negative Psychological: Positive: Negative Physical Exam - Summary Physical Exam Summary: GENERAL: NAD.Mildly ill appearing SKIN: No rashes, sores, lesions, or open wounds. HEENT: Head: AT/NC Eyes: EOM intact. Conjunctiva clear without inflammation or discharge. Ears: Hearing grossly normal. TMs intact, no bulging, erythema, or edema. Nose: Nasal mucosa pink and moist. NTTP maxillary and frontal sinus. Throat: Posterior oropharynx without exudates, erythema, or tonsillar enlargement. Uvula midline. NECK: Supple. Nontender. No lymphadenopathy. CHEST: CTAB. No accessory muscle use. Breathing comfortably and in no distress. CV: RRR. Without m/r/g. Pulses intact. Cap refill <2seconds NEURO: Alert. PSYCH: Age appropriate behavior. Triage Information Reviewed: Yes Vital Signs: Initial Vital Signs Temp 98.0 F 05/10/19 16:39 Pulse 87 05/10/19 16:39 Resp 18 05/10/19 16:39 BP 134/85 05/10/19 16:39 Pulse Ox 99 05/10/19 16:39 Laboratory Tests 05/10/19 17:06 Influenza A (Rapid) Negative Influenza B (Rapid) Negative Vital Signs Reviewed: Yes Throat Pain/Nasal Course/Dx - Course Course Of Treatment: Suspect viral illness. Will rx for mucinex, claritin, and prednisone. Advised to continue her albuterol inhaler and f/u if symptoms do not improve within the next 5-7 days - Differential Dx/Diagnosis Provider Diagnosis: Viral illness Discharge ED - Sign-Out/Discharge Documenting (check all that apply): Patient Departure All imaging exams completed and their final reports reviewed: No Studies - Discharge Plan Condition: Stable Disposition: HOME Prescriptions: guaiFENesin ER TAB [Mucinex*] 600 mg PO BID #14 tab.er Loratadine [Claritin] 10 mg PO DAILY #14 tablet predniSONE TAB* [Deltasone 20 MG TAB*] 40 mg PO DAILY #10 tab Patient Education Materials: Viral Syndrome (ED) Forms: *Work Release Referrals: Yoni Grijalva DO [Primary Care Provider] - Additional Instructions: If you develop a fever, shortness of breath, chest pain, new or worsening symptoms - please call your PCP or go to the ED immediately. Your flu test was negative today Continue using your albuterol inhaler as directed - Billing Disposition and Condition Condition: STABLE Disposition: Home
[2019-05-10 17:20] LABS: Influenza A Molecular NEGATIVE (Negative); Influenza B Molecular NEGATIVE (Negative)
== END 2019-05-10 17:23 | disposition home or self-care (01) ==
LOC: UCEAST 16:10
DX: B34.9 Viral infection, unspecified (principal); J02.9 Acute pharyngitis, unspecified; R09.81 Nasal congestion; R09.89 Other specified symptoms and signs involving the circulatory and respiratory systems; R05 Cough; R06.2 Wheezing; J45.909 Unspecified asthma, uncomplicated; Z87.891 Personal history of nicotine dependence
CPT/HCPCS: 99212; G0463